=== PATIENT | male | born 1960 | race Caucasian/White ===

== ENCOUNTER 2022-04-05 16:40 | Emergency (ER) | payer OTHER ==
[2022-04-05 17:27] LABS: BASOPHIL 0.8 % (0-2); EOSINOPHIL 1.1 % (0-5); HCT 37.2 % (42.0-52.0); LYMPHOCYTE 9.8 % (15-48); MCH 31.8 pg (25.0-31.0); MCHC 34.9 g/dL (32.0-36.0); MONOCYTE 6.5 % (0-12); MPV 9.6 fL (6.0-9.5); NEUTROPHIL 81.2 % (41-80); NRBC 0; PLT 208 K/uL (150-400); RBC 4.09 M/uL (4.70-6.00); RDW 13.2 % (11.5-14.0); WBC 6.3 K/uL (4.0-10.5)
[2022-04-05 17:38] LABS: INFLUENZA A NAA NEGATIVE (NEGATIVE)
[2022-04-05 17:41] LABS: CORONAVIRUS 2019 SARS-COV-2 POSITIVE (NEGATIVE)
[2022-04-05 17:49] LABS: ALBUMIN 4.1 g/dL (3.4-5.0); BILIRUBIN - TOTAL 0.4 mg/dL (0.2-1.0); BUN/CREAT RATIO (CALC) 8.6 RATIO; CREATININE 0.81 mg/dL (0.67-1.17); GLOBULIN (CALCULATION) 3.1 g/dL; LACTIC ACID 1.9 mmol/L (0.4-1.9); TOTAL PROTEIN 7.2 g/dL (6.4-8.2)
[2022-04-05] MEDS ORDERED: K-TAB ER20 MEQ PO (19:16)
== END 2022-04-05 19:49 | disposition home or self-care (01) ==
LOC: FER 16:40
PROVIDERS: Nurse Practitioner Family
DX: U07.1 COVID-19 (principal); E87.6 Hypokalemia; F17.210 Nicotine dependence, cigarettes, uncomplicated; Z28.310 Unvaccinated for COVID-19
CPT/HCPCS: 36415; 71046; 80053; 83605; 84145; 84484; 85025; 87040; 93005; J7030; U0002